=== PATIENT | female | born 1935 | race Caucasian/White ===

== ENCOUNTER 2017-05-04 14:44 | Inpatient (IN) ==
[2017-05-04] MEDS ORDERED: ONDANSETRON 4 MG/2 ML VIAL IV STA (15:54)
[2017-05-04] MEDS ORDERED: HYDROmorphone 2 MG/1 ML VIAL IV STA (15:54)
[2017-05-04 16:06] LABS: Basophils # 0.1 10*3/uL (0.0-0.2); Basophils % 0.5 % (0.0-0.8); Eosinophils % 0.3 % (0.00-10.9); Hematocrit 37.5 VOL% (35.7-47.0); Immature Granulocytes % 0.3 %; Immature Granulocytes Absolute 0.03 #; Lymphocytes # 1.1 10*3/uL (1.4-4.0); Lymphocytes % 12.3 % (21.3-54.2); Mean Corpuscular HGB Conc 34.7 GM/DL (32-36); Mean Corpuscular Hemoglobin 30 PG (27-34); Mean Corpuscular Volume 86.8 FL (87-102); Mean Platelet Volume 10.1 FL (9.6-12.0); Monocytes # 0.4 10*3/uL (0.11-0.8); Monocytes % 4.6 % (1.7-12.7); Neutrophils # 7.5 10*3/uL (1.4-7.4); Platelet Count 224 T/CUMM (130-400); Red Blood Count 4.32 MC/CUMM (3.8-5.5); Red Cell Distribution Width 13.7 % (9.3-17.3); White Blood Count 9.2 T/CUMM (4-12)
[2017-05-04 16:21] LABS: Calcium 9.3 MG/DL (8.5-10.1); Osmolality,Calculated 272.1 MOS/KG (273-304); Potassium 4.1 MMOL/L (3.5-5.1)
[2017-05-04] MEDS ORDERED: ONDANSETRON 4 MG/2 ML VIAL ONE (16:32)
[2017-05-04] MEDS ORDERED: HYDROmorphone 2 MG/1 ML VIAL ONE (16:33)
[2017-05-04] MEDS ORDERED: INFLUENZA VIRUS VACCINE 0.5 ML SYRINGE IM ONE (18:41)
[2017-05-04] MEDS ORDERED: HYDROmorphone 2 MG/1 ML VIAL IV PRN (20:54)
[2017-05-04] MEDS ORDERED: ONDANSETRON 4 MG/2 ML VIAL IV PRN (20:54)
[2017-05-04] MEDS ORDERED: LACTULOSE 20 GM/30 ML UDCUP PO PRN (20:54)
[2017-05-04] MEDS ORDERED: ACETAMINOPHEN 325 MG TABLET PO PRN (20:54)
[2017-05-04] MEDS ORDERED: METOPROLOL SUCCINATE XL 25 MG TABLET PO SCH (21:00)
[2017-05-04 21:29] LABS: Thyroid Stimulating Hormone 1.36 uIU/ml (0.358-3.74)
[2017-05-04] MEDS: SODIUM CHLORIDE 0.9% 1,000 ML IV SCH (21:50)
[2017-05-04] MEDS: PRAMIPEXOLE 0.25 MG TABLET PO SCH (21:54)
[2017-05-04] MEDS: PANTOPRAZOLE 40 MG TABLET PO SCH (21:57)
[2017-05-04] MEDS: ASPIRIN EC 81 MG TABLET PO SCH (21:57)
[2017-05-04] MEDS: ENOXAPARIN 40 MG/0.4 ML SYRINGE SUBCUT SCH (21:58)
[2017-05-04 22:36] LABS: Apearance,Urine CLEAR (Clear); Bilirubin,Urine Negative (Negative); Blood, Urine Small mg/dL (Negative); Glucose,Urine (UA) Negative (Negative); Ketones,Urine 20 mg/dL (Negative); Mucus,Urine Occasional /LPF (Occasional); Nitrite,Urine Negative (Negative); Protein,Urine Negative; RBC,Urine 20 /HPF (0-4); Urine Color Yellow (Yellow); Urine Specific Gravity 1.014 (1.001-1.035); Urine Urobilinogen < 2.0 EU/DL (0.2-1.0); WBC,Urine 4 /HPF (0-6)
[2017-05-05 04:37] LABS: Basophils # 0.1 10*3/uL (0.0-0.2); Eosinophils # 0.1 10*3/uL (0.0-0.87); Eosinophils % 1.2 % (0.00-10.9); Hematocrit 32.2 VOL% (35.7-47.0); Hemoglobin 10.8 GM/DL (12.0-16.0); Immature Granulocytes % 0.2 %; Immature Granulocytes Absolute 0.01 #; Lymphocytes # 1.4 10*3/uL (1.4-4.0); Lymphocytes % 27.8 % (21.3-54.2); Mean Corpuscular HGB Conc 33.5 GM/DL (32-36); Mean Corpuscular Hemoglobin 30 PG (27-34); Mean Corpuscular Volume 88.5 FL (87-102); Mean Platelet Volume 10.4 FL (9.6-12.0); Monocytes # 0.6 10*3/uL (0.11-0.8); Monocytes % 11.7 % (1.7-12.7); Neutrophils # 2.9 10*3/uL (1.4-7.4); Neutrophils % 58.1 % (38.7-73.9); Platelet Count 198 T/CUMM (130-400); Red Blood Count 3.64 MC/CUMM (3.8-5.5)
[2017-05-05 05:05] LABS: Osmolality,Calculated 282.4 MOS/KG (273-304)
[2017-05-05] MEDS: SODIUM CHLORIDE 0.9% 1,000 ML IV SCH ×3 (08:40→15:45)
[2017-05-05] MEDS ORDERED: NON-FORMULARY MEDICATION (Omeprazole [Prilosec] 20 MG) PO SCH (09:00)
[2017-05-05] MEDS ORDERED: IBUPROFEN 200 MG TABLET PO PRN (13:43)
[2017-05-05] MEDS ORDERED: NAPROXEN 250 MG TABLET PO PRN (13:52)
[2017-05-05] MEDS: ENOXAPARIN 40 MG/0.4 ML SYRINGE SUBCUT SCH (21:11)
[2017-05-05] MEDS: PRAMIPEXOLE 0.25 MG TABLET PO SCH (21:12)
[2017-05-05] MEDS: PANTOPRAZOLE 40 MG TABLET PO SCH (21:12)
[2017-05-05] MEDS: ASPIRIN EC 81 MG TABLET PO SCH (21:12)
[2017-05-06] MEDS: SODIUM CHLORIDE 0.9% 1,000 ML IV SCH (04:40)
[2017-05-06] MEDS: ASPIRIN EC 81 MG TABLET PO SCH (20:03)
[2017-05-06] MEDS: PRAMIPEXOLE 0.25 MG TABLET PO SCH (20:03)
[2017-05-06] MEDS: PANTOPRAZOLE 40 MG TABLET PO SCH (20:03)
[2017-05-06] MEDS: ENOXAPARIN 40 MG/0.4 ML SYRINGE SUBCUT SCH (20:03)
[2017-05-07] MEDS: LOSARTAN 50 MG TABLET PO SCH (18:50)
[2017-05-07] MEDS: METOPROLOL SUCCINATE XL 25 MG TABLET PO SCH (18:51)
[2017-05-07] MEDS: PANTOPRAZOLE 40 MG TABLET PO SCH (21:13)
[2017-05-07] MEDS: ENOXAPARIN 40 MG/0.4 ML SYRINGE SUBCUT SCH (21:13)
[2017-05-07] MEDS: PRAMIPEXOLE 0.25 MG TABLET PO SCH (21:13)
[2017-05-07] MEDS: ASPIRIN EC 81 MG TABLET PO SCH (21:13)
[2017-05-08] MEDS: METOPROLOL SUCCINATE XL 25 MG TABLET PO SCH (09:13)
[2017-05-08] MEDS: LOSARTAN 50 MG TABLET PO SCH (09:13)
[2017-05-08 11:35] VITALS: BP 136/63
== END 2017-05-08 13:35 | disposition swing bed (61) | DRG 563 ==
LOC: N.ED 14:44 → N.EDINP 16:55 → SUATTDRO 16:55 → N.EDINP 18:25 → N.2E 18:35
PROVIDERS: ADMIT Internal Medicine; ATTEND Internal Medicine